=== PATIENT | female | born 1985 | race African-American/Black ===

== ENCOUNTER 2020-04-26 00:03 | Inpatient (IN) | payer OTHER, MEDICAID, SELFPAY ==
[2020-04-26] VITALS (146 sets, daily range): BP systolic 91–150; BP diastolic 46–112; PULSE 77–192; RESP 14–18; TEMP 35.7–37.2; O2SAT 95–100; BMI 32.3
--- NOTE | 2020-04-26 00:54 | LDADM ---
This patient, Radha Camarena, was admitted to Labor/Delivery/Recovery 106 on 04/26/20 at 00:32. Plans for labor, pain management and were discussed with patient. Patient/family oriented to hospital policies and general routines including ID bracelet, bed and alarms, visiting hours, pain management, procedures, bathroom and other care routines, personal items, smoking policy, room service/diet and guest tray routines, security routines, and visiting hours. Patient/Family are encouraged to report perceived risks to care and to ask questions if they do not understand what they are told or what they should do. See OBIX for further documentation.
[2020-04-26 01:19] LABS: Basophils Percent Auto 0.4 % (0.2-1.2); Eosinophils Absolute Auto 0.1 K/mm3 (0-0.3); Eosinophils Percent Auto 1.5 % (0-4.4); Hematocrit 32.7 % (37.0-47.0); Hemoglobin 11.1 g/dL (12.0-15.0); Immature Granulocyte Absolute 0.04 K/mm3 (0.00-0.031); Immature Granulocyte Percent A 0.5 % (0-0.5); Lymphocytes Absolute Auto 1.69 K/mm3 (0.9-3.2); Mean Corpuscular HGB Conc 33.9 g/dl (32-36); Mean Corpuscular Hemoglobin 32.8 pg (26-34); Mean Corpuscular Volume 96.7 fl (80-100); Mean Platelet Volume 11.8 fl (7.4-10.4); Monocytes Absolute Auto 0.4 K/mm3 (0.1-0.6); Monocytes Percent Auto 5.3 % (2.6-8.5); Neutrophils Absolute Auto 5.7 K/mm3 (1.3-6.7); Neutrophils Percent Auto 71.3 % (45.5-73.1); Platelet Count Result 245 k/mm3 (150-375); Red Blood Count 3.38 M/mm3 (4.2-5.4)
[2020-04-26 01:48] LABS: Barbiturate Screen Urine Negative (Negative); Benzodiazepines Screen Urine Negative (Negative)
[2020-04-26 02:24] LABS: Amphetamine Screen Urine Negative (Negative); Cannabinoid Screen Urine Positive (Negative); Cocaine Screen Urine Negative (Negative); Methadone Screen Urine Negative (Negative); Opiate Screen Urine Negative (Negative); Phencyclidine Screen Urine Negative (Negative)
[2020-04-26] MEDS: fentaNYL CITRATE INJ (*CRX) 100 MCG/2 ML VIAL 50 MCG IV PUSH ×2 (02:39→04:07)
[2020-04-26] MEDS: LACTATED RINGERS 1,000 ML 125 ML IV CONT ×2 (02:40→05:28)
--- NOTE | 2020-04-26 05:06 | WPDANESEPP ---
Anes - Eval Pre Procedure Procedure: labor epidural Date/Time: 04/26/20 05:06 Surgeon: rylie Preop Diagnosis: pain during labor Pre Op Diagnosis: Leaking Patient Data Age: 34 Gender: F Height: 1.65 m Weight: 88 kg Last Vital Signs Temp 35.7 C L 04/26/20 05:00 Pulse 93 04/26/20 05:01 Resp 18 04/26/20 05:00 BP 122/81 04/26/20 05:01 Allergies Allergy/AdvReac Type Severity Reaction Status Date / Time No Known Allergies Allergy Verified 04/26/20 00:49 Home Medications Medication Instructions Recorded Confirmed Type PNV,calcium 55-gjul-ealoa acid 1 tablet PO DAILY 04/26/20 04/26/20 History [ Vitamin Plus Low Iron] Laboratory Tests 04/26/20 04/26/20 04/26/20 01:01 01:01 01:01 WBC 8.0 K/mm3 K/mm3 (4.5-10.0) RBC 3.38 M/mm3 L M/mm3 (4.2-5.4) Hgb 11.1 g/dL L g/dL (12.0-15.0) Hct 32.7 % L % (37.0-47.0) MCV 96.7 fl fl (80-100) MCH 32.8 pg pg (26-34) MCHC 33.9 g/dl g/dl (32-36) RDW 14.0 % % (11.5-14.5) Plt Count 245 k/mm3 k/mm3 (150-375) MPV 11.8 fl H fl (7.4-10.4) Immature Gran % (Auto) 0.5 % % (0-0.5) Neut % (Auto) 71.3 % % (45.5-73.1) Lymph % (Auto) 21.0 % % (18.3-44.2) [place] % (Auto) 5.3 % % (2.6-8.5) Eos % (Auto) 1.5 % % (0-4.4) Baso % (Auto) 0.4 % % (0.2-1.2) Lymph # (Auto) 1.69 K/mm3 K/mm3 (0.9-3.2) [place] # (Auto) 0.4 K/mm3 K/mm3 (0.1-0.6) Eos # (Auto) 0.1 K/mm3 K/mm3 (0-0.3) Baso # (Auto) 0.0 K/mm3 K/mm3 (0.0-0.1) Abs Immat Gran (auto) 0.04 K/mm3 H K/mm3 (0.00-0.031) Absolute Neuts (auto) 5.7 K/mm3 K/mm3 (1.3-6.7) Absolute Nucleated RBC 0.0 K/mm3 K/mm3 (0.0-0.012) Nucleated RBC % 0.0 % % (0.0-0.2) Urine Opiates Screen Urine Methadone Screen Ur Barbiturates Screen Ur Phencyclidine Scrn Ur Amphetamine Screen U Benzodiazepines Scrn Urine Cocaine Screen U Cannabinoids Screen RPR Pending Blood Type O Positive Antibody Screen Negative 04/26/20 01:01 WBC RBC Hgb Hct MCV MCH MCHC RDW Plt Count MPV Immature Gran % (Auto) Neut % (Auto) Lymph % (Auto) [place] % (Auto) Eos % (Auto) Baso % (Auto) Lymph # (Auto) [place] # (Auto) Eos # (Auto) Baso # (Auto) Abs Immat Gran (auto) Absolute Neuts (auto) Absolute Nucleated RBC Nucleated RBC % Urine Opiates Screen Negative (Negative) Urine Methadone Screen Negative (Negative) Ur Barbiturates Screen Negative (Negative) Ur Phencyclidine Scrn Negative (Negative) Ur Amphetamine Screen Negative (Negative) U Benzodiazepines Scrn Negative (Negative) Urine Cocaine Screen Negative (Negative) U Cannabinoids Screen Positive A (Negative) RPR Blood Type Antibody Screen Patient hx anesthesia problems: none Family hx anesthesia problems: none [facility] Social History Social History Smoking status: Never smoker Substance use: never Gender identity (if verbalized by the patient): Female Sexual Orientation (if Verbalized by the Patient): Straight or Heterosexual Spiritual care concerns: No Exam Day of Procedure 04/26/20 05:06
[2020-04-26] MEDS: OXYTOCIN 30 UNITS/NS 500 ML 30 UNITS/500 ML BAG IV CONT (06:29)
[2020-04-26] MEDS: ONDANSETRON INJ 4 MG/2 ML VIAL IV PUSH (07:00)
--- NOTE | 2020-04-26 08:47 | PM.IMHP ---
H&P: HPI History of Present Illness Date/Time: 04/26/20 08:47 The patient is a 34-year-old currently 40w1d with an LIZ 04/25/20 who presented to L&D with complaints of leakage of fluid. Patient reports noticing leakage of clear fluid at approximately 11:20 p.m. She reports possible onset of contractions prior to leakage, however, is uncertain. Reported occ contractions at time of presentation to L&D. Denies any vaginal bleeding. Reports good movement. Patient receives outside care with nurse lab support technician Emily Regalado at [facility]. States that has been uncomplicated and all labs and ultrasounds have been within normal limits. Patient has a history of one prior uncomplicated and in 2005. Chief Complaint: SROM Narrative: Radha Camarena is a 34 year old female Review of Systems Review of Systems: All systems reviewed & are unremarkable except as noted in HPI and below Constitutional: Constitutional: Reports as per HPI, Reports no additional constitutional complaints, Denies chills, Denies fever(s), Denies headache(s) and Denies night sweats Eyes: Eyes: Reports as per HPI and Reports no additional eye complaints ENT: Reports system reviewed and no additional complaints, except as documented, Reports as per HPI, Reports Normal hearing present and Denies headache(s) Cardiovascular: Cardiovascular: Reports as per HPI, Reports no additional cardiovascular complaints, Denies chest pain and Denies dyspnea Respiratory: Respiratory: Reports as per HPI, Reports no additional respiratory complaints, Denies cough and Denies dyspnea Gastrointestinal: Gastrointestinal: Reports as per HPI, Reports no additional gastrointestinal complaints, Denies abdominal pain, Denies change in bowel habits, Denies change in stool character, Denies nausea and Denies vomiting Genitourinary: Genitourinary: Reports no additional female genitourinary complaints, Reports as per HPI, Denies abnormal vaginal bleeding, Denies genital lesions, Denies hot flashes, Denies dyspareunia, Denies pelvic pain, Denies sexual dysfunction, Denies urinary incontinence, Denies vaginal discharge, Denies vaginal dryness and Denies vaginal odor Musculoskeletal: Musculoskeletal: Reports no additional musculoskeletal complaints and Reports as per HPI Integumentary/Breasts: Skin/Breast: Reports system reviewed and no additional complaints, except as docu, Reports as per HPI, Denies breast pain and Denies nipple discharge Neurologic: Reports system reviewed and no additional complaints, except as documented, Reports as per HPI, Reports Normal hearing present and Denies headache(s) Psychiatric: Psychiatric: Reports no additional psychiatric complaints, Reports as per HPI, Denies anxiety and Denies depression Endocrine: Endocrine: Reports no additional endocrine complaints and Reports as per HPI Hematologic/Lymphatic: Hematologic/Lymphatic: Reports no additional hematologic/lymphatic complaints and Reports as per HPI Allergic/Immunologic: Allergic/Immunologic: Reports no additional allergic/immunologic complaints and Reports as per HPI [facility] Surgical History Surgical History (Updated 04/26/20 @ 11:13 by Chantell Wolf MD) H/O shoulder surgery as a child Social History Social History Smoking status: Never smoker Substance use: never Gender identity (if verbalized by the patient): Female Sexual Orientation (if Verbalized by the Patient): Straight or Heterosexual Spiritual care concerns: No Meds Home Medications and Allergies Home Medications Medication Instructions Recorded Confirmed Type PNV,calcium 95-cfws-uxozj acid 1 tablet PO DAILY 04/26/20 04/26/20 History [ Vitamin Plus Low Iron] Allergies Allergy/AdvReac Type Severity Reaction Status Date / Time No Known Allergies Allergy Verified 04/26/20 00:49 Vital Signs Vital Signs - 24 hr
--- NOTE | 2020-04-26 09:21 | PM.OBPNVD ---
OB - PN: Subj Subjective Date/time seen: 04/26/20 09:21 Throughout entire period on L&D, EFM seemed to auscultate a possible arrhythmia. An FSE was placed for enhanced monitoring. Possible tetanic contractions were also noted on toco and an IUPC was also placed. Early decelerations were noted, however, there were longer periods of time where the baseline heart rate was bradycardic in 90s-100s. Although moderate variability remained constant and fetus responded minimally to scalp stimulation, the tracing did not adequately recover in between contractions despite various resuscitative measures, including maternal repositioning and O2 administration by facemask. Patient made cervical change to 5cm dilated. FHR remained persistently in the 90s and occasionally decreased to the 80s. Decision was made to proceed with section for Category II tracing remote from delivery. Risks and benefits discussed. All questions and concerns addressed. Patient implied an understanding. OB - PN: Obj Data Labs CBC & Chem 7: 04/26/20 01:01 Labs: Laboratory Results - last 24 hr 04/26/20 04/26/20 04/26/20 01:01 01:01 01:01 WBC 8.0 RBC 3.38 L Hgb 11.1 L Hct 32.7 L MCV 96.7 MCH 32.8 MCHC 33.9 RDW 14.0 Plt Count 245 MPV 11.8 H Immature Gran % (Auto) 0.5 Neut % (Auto) 71.3 Lymph % (Auto) 21.0 [place] % (Auto) 5.3 Eos % (Auto) 1.5 Baso % (Auto) 0.4 Lymph # (Auto) 1.69 [place] # (Auto) 0.4 Eos # (Auto) 0.1 Baso # (Auto) 0.0 Abs Immat Gran (auto) 0.04 H Absolute Neuts (auto) 5.7 Absolute Nucleated RBC 0.0 Nucleated RBC % 0.0 Urine Opiates Screen Negative Urine Methadone Screen Negative Ur Barbiturates Screen Negative Ur Phencyclidine Scrn Negative Ur Amphetamine Screen Negative U Benzodiazepines Scrn Negative Urine Cocaine Screen Negative U Cannabinoids Screen Positive A Blood Type O Positive Antibody Screen Negative OB - PN A/P Time Spent With Patient Time: Total time spent is greater than 50% in coordination of care (as documented) at patient's floor/unit and/or counseling patient:
--- NOTE | 2020-04-26 10:32 | WPDANESEFPP ---
Anes - Eval Final PreProcedure Day of Procedure 04/26/20 10:32 Patient weight: obese Heart: regular rate and rhythm Lungs: clear to auscultation Airway: Mallampati scale class II Neurological: alert and oriented ASA classification: II Emergent: yes Anesthetic plan: proceed Anesthesia type and monitoring: regional epidural and standard monitoring Other findings: exam per GS Informed Consent: The patient's anesthetic plan and its attendant risks and benefits were discussed with the patient/family/POA. Questions were solicited and answers provided to the satisfaction of the patient/family/POA.
--- NOTE | 2020-04-26 10:40 | PM.PROC ---
Procedure Note - Detailed Date of procedure: 04/26/20 Pre-op diagnosis: Leaking Intrauterine at 40w1d Category II tracing remote from delivery Post-op diagnosis: same Procedure performed: Primary low transverse section via Pfannenstiel Description of procedure: The patient was taken to the operating room, where she was transferred to the operating room table. The patient was placed in dorsal supine position with a leftward tilt. She was prepped and draped in the usual sterile fashion. Epidural anesthesia that was previously administered was tested and found to be adequate. A Pfannenstiel skin incision was made with a scalpel and carried through to underlying layer of fascia with the Bovie. The fascia was incised in the midline and the incision was extended laterally with the use of forceps and Klein scissors. The inferior aspect of the fascial incision was grasped with Carlos clamps, elevated, and the underlying rectus muscle were dissected off with Klein scissors. Attention was then turned to the superior aspect of the fascial incision, which in a similar manner, was grasped with Carlos clamps, elevated, and the underlying rectus muscles were also dissected off with Klein scissors. The rectus muscles were in the midline and the peritoneal cavity was entered bluntly. This incision was extended superiorly and inferiorly with good visualization of the bladder and care was taken to avoid blood vessels. A bladder blade was inserted. The vesicouterine peritoneum was identified and incised sharply with Metzenbaum scissors. This incision was extended laterally with Metzenbaum scissors and a bladder flap was created digitally. The bladder blade was replaced. A low-transverse uterine incision was made with a scalpel. This incision was extended laterally with bandage scissors. Amniotomy was performed. Meconium stained amniotic fluid was noted. The 's head was grasped and gently guided to the level of the uterine incision. The 's head was delivered easily and atraumatically without difficulty followed by the neck, shoulders, and rest of body with gentle fundal pressure. The infant's nose and mouth were suctioned bulb suction. The was crying spontaneously. The cord was clamped and cut and the was handed off to waiting nursing staff. A segment of cord was collected for cord gases. Cord blood was also collected. The placenta was then delivered manually with gentle uterine massage. Uterus was exteriorized and cleared of all clots and debris. An area along the posterior surface of the uterine wall was noted to be moderately bleeding. A figure of eight suture with 0 Vicryl was placed ensuring hemostasis. The uterine incision was reapproximated with 0 Vicryl in a running, locked fashion. A second imbricating layer using 0 Monocryl performed. A few areas of bleeding were noted inferior to the uterine incision. These areas were made hemostatic with a combination using a few figure of eight sutures using 0 Vicryl and 0 Monocryl as well bovie. Excellent hemostasis was noted. On inspection, the uterus, ovaries, and fallopian tubes appeared to be normal bilaterally. The uterus was replaced into the abdominal cavity. The gutters were cleared of all clots and debris. The uterine incision was inspected again and noted to be hemostatic. Hemaderm was applied across the uterine incision. Seprafilm was also applied across the uterine incision and anterior surface of the uterus. The peritoneum was reapproximated with 2-0 Monocryl. The fascia was then closed with 0 Vicryl in a running fashion. The subcutaneous layer was irrigated with water. Pinpoint areas of bleeding were made hemostatic with Bovie. The subcutaneous layer was reapproximated with 2-0 plain and the skin was then closed with 4-0 Monocryl in a subcuticular fashion. The skin was cleansed and dried. Dermaflex skin adhesive was applied across the incision. A pressure dressing was also applied. [facility]
--- NOTE | 2020-04-26 11:25 | PC.NURSE ---
1045 INTO OBR VIA STRETCHER, REPORT FROM Kimberly KIM CRNA. MONITORS APPLIED. IVF GOING WELL. SCD'S REMAIN.MYERS WITH CLEAR YELLOW URINE. INCISION INTACT OPEN TO AIR. FUNDUS FIRM AT UMBILICUS. SMALL RUBRA FLOW. PAIN 3 ONLY WITH FUNDAL CHECKS.
--- NOTE | 2020-04-26 13:54 | SUR.PHASEI ---
1245 EVALUATIONS AT 1130 AND 1145 ARE WNL AND PREVIOUS...CHARTING IS NOT WORKING CORRECTLY AND ATTEMPTS TO DISCARD UNSUCCESSFUL.
[2020-04-26] MEDS: KETOROLAC 30 MG/ML VIAL (*BKC) IV PUSH (14:15)
[2020-04-26] MEDS: DEXTROSE 5%/0.45% SOD CHL 1,000 ML 125 ML IV CONT (16:48)
[2020-04-26] MEDS: DOCUSATE SODIUM 100 MG CAPSULE PO (20:01)
[2020-04-26] MEDS: IBUPROFEN 600 MG TABLET PO (20:56)
[2020-04-27] VITALS: BP 97/56; PULSE 80; RESP 16; TEMP 36.7; O2SAT 96
[2020-04-27 04:00] VITALS: BP 91/55; PULSE 71; RESP 16; TEMP 36.4; O2SAT 96
[2020-04-27 05:30] LABS: Basophils Percent Auto 0.4 % (0.2-1.2); Eosinophils Absolute Auto 0.1 K/mm3 (0-0.3); Eosinophils Percent Auto 1.1 % (0-4.4); Hematocrit 26.4 % (37.0-47.0); Hemoglobin 8.7 g/dL (12.0-15.0); Immature Granulocyte Absolute 0.03 K/mm3 (0.00-0.031); Immature Granulocyte Percent A 0.4 % (0-0.5); Mean Corpuscular Hemoglobin 32.2 pg (26-34); Mean Corpuscular Volume 97.8 fl (80-100); Monocytes Absolute Auto 0.5 K/mm3 (0.1-0.6); Monocytes Percent Auto 5.8 % (2.6-8.5); Neutrophils Absolute Auto 6.7 K/mm3 (1.3-6.7); Neutrophils Percent Auto 80.3 % (45.5-73.1); Platelet Count Result 189 k/mm3 (150-375); Red Cell Distribution Width 14.1 % (11.5-14.5); White Blood Count 8.3 K/mm3 (4.5-10.0)
--- NOTE | 2020-04-27 07:07 | WPDANLDPN2 ---
Anes-Prog Note L&D Date/Time: 04/27/20 07:07 Comfortable throughout: labor and section Neuraxial method: epidural Epidural/Spinal procedure site: clean & non-tender Neuro status: Neuro function grossly intact. Cardiovascular status: normal Respiratory status: normal Airway patency: baseline Mental status: baseline Post-Op hydration status: normal Vital Signs: Last Vital Signs Temp 36.4 C 04/27/20 04:00 Pulse 71 04/27/20 04:00 Resp 16 04/27/20 04:00 BP 91/55 L 04/27/20 04:00 Pulse Ox 96 04/27/20 04:00 Pain score (VAS): 2/10 I/O: Intake & Output 04/26/20 04/26/20 04/27/20 15:59 23:59 07:59 Intake Total 120 1800 Output Total 398 842 1984 Balance -300 -380 -350 Post-procedural complaints: none Patient feedback: Patient satisfied with anesthetic care.
--- NOTE | 2020-04-27 07:08 | WPDANLDNPN2 ---
Anes-Prog Note L&D-Neuraxial Date/Time: 04/27/20 07:08 Neuraxial medications: epidural PF morphine Opiod-related complaints: none Patient feedback: Patient satisfied with post-operative pain management.
[2020-04-27 08:00] VITALS: BP 101/57; PULSE 79; RESP 18; TEMP 36.6; O2SAT 96
[2020-04-27] MEDS: HYDROcodone/acetaminophen (*CRX) 5-325 MG TABLET 1 TAB PO ×4 (08:01→23:29)
[2020-04-27] MEDS: IBUPROFEN 600 MG TABLET PO ×2 (08:02→13:38)
[2020-04-27] MEDS: DOCUSATE SODIUM 100 MG CAPSULE PO ×2 (08:02→16:46)
[2020-04-27] MEDS: POLYSACCHARIDE IRON COMPLEX 150 MG CAPSULE PO ×2 (08:02→16:46)
[2020-04-27] MEDS: SIMETHICONE 80 MG TAB.CHEW PO ×3 (08:03→19:50)
[2020-04-27 09:05] LABS: Rapid Plasma Reagin Non-Reactive (NonReactive)
--- NOTE | 2020-04-27 11:44 | PM.OBPNVD ---
OB - PN: Subj Subjective Date/time seen: 04/27/20 11:44 Patient comments: pain well controlled, tolerating diet and flatus present; no incisional pain Zoe baby status: doing well and bottle feeding well Zoe feeding status: exclusively bottle feeding Narrative: Pt denies fever/chills Denies Nausea/vomiting/Cp/SOB Urinated once without problems. Passing flatus Lochia is less than her menstrual cycle. OB - PN: Obj Data Labs CBC & Chem 7: 04/27/20 05:08 Labs: Laboratory Results - last 24 hr 04/26/20 04/27/20 01:01 05:08 WBC 8.3 RBC 2.70 L Hgb 8.7 L Hct 26.4 L MCV 97.8 MCH 32.2 MCHC 33.0 RDW 14.1 Plt Count 189 MPV 12.0 H Immature Gran % (Auto) 0.4 Neut % (Auto) 80.3 H Lymph % (Auto) 12.0 L [place] % (Auto) 5.8 Eos % (Auto) 1.1 Baso % (Auto) 0.4 Lymph # (Auto) 1.00 [place] # (Auto) 0.5 Eos # (Auto) 0.1 Baso # (Auto) 0.0 Abs Immat Gran (auto) 0.03 Absolute Neuts (auto) 6.7 Absolute Nucleated RBC 0.0 Nucleated RBC % 0.0 RPR Non-reactive OB - PN A/P Assessment and Plan (1) Anemia: Code(s): D64.9 - Anemia, unspecified Status: Acute Assessment and Plan: continue iron (2) S/P section: Code(s): Z98.891 - History of uterine scar from previous surgery Status: Acute Assessment and Plan: Doing well pain well controlled Plan day: 1 Plan: routine care Comments: encourage ambulation Advance diet as tolerated BF instructed. Time Spent With Patient Time: Total time spent is greater than 50% in coordination of care (as documented) at patient's floor/unit and/or counseling patient: Review of Systems Constitutional: Constitutional: Reports as per HPI, Denies chills, Denies fever(s) and Denies headache(s) Eyes: Eyes: Denies blurry vision ENT: Reports Normal hearing present Cardiovascular: Cardiovascular: Denies chest pain, Denies lightheadedness and Denies dyspnea Respiratory: Respiratory: Denies cough and Denies dyspnea Gastrointestinal: Gastrointestinal: Denies nausea and Denies vomiting Genitourinary: Genitourinary: Reports as per HPI Musculoskeletal: Musculoskeletal: Reports as per HPI Integumentary/Breasts: Skin/Breast: Denies breast pain and Denies breast mass Neurologic: Reports Normal hearing present Psychiatric: Psychiatric: Reports no additional psychiatric complaints Exam Const: General: cooperative, healthy appearing, comfortable, no acute distress, well developed, alert, awake, Physically active and well groomed Nutritional Appearance: well nourished Orientation/consciousness: patient oriented x3 Limitations: no limitations HENMT: Head: normal to inspection Ears: hearing grossly normal bilaterally Resp: Effort & Inspection: normal respiratory effort and able to speak in complete sentences Auscultation: clear to auscultation bilaterally Cardio: Rate: regular rate Rhythm: regular rhythm GI: Inspection: normal to inspection and non-distended GI Palp: Yes Soft to palpation, Yes Tenderness to palpation present (GI) (appropraite for surgery) and Yes Other GI palpation findings present (Fundus firm and level of umbilicus) Auscultation: normal bowel sounds Rectal Exam: deferred
--- NOTE | 2020-04-27 11:50 | PM.OBDSVD ---
DS: Admitting Diagnosis Admitting Diagnosis Admitting Diagnosis: SROM at term DS: Discharge Diagnosis Discharge Diagnosis (1) S/P section: Code(s): Z98.891 - History of uterine scar from previous surgery Status: Acute OB - DS: Summary OB Procedures : None OB Procedures Intrapartum: low cervical, transverse OB Procedures: : None Peripartum Data Delivery Method: Section Procedures: Procedures Operation Date: 04/26/20 09:15 Actual Procedures Side Surgeon p Section Chantell Wolf MD complications: none Status at Discharge Functional status at discharge: independent ambulation Overall status at discharge: patient is progressing back to baseline Time Spent with Patient Time attestation: Total time spent providing and/or coordinating discharge services: Time spent: Less than 30 minutes Exam Const: General: cooperative, healthy appearing, comfortable, no acute distress, well developed, alert, awake, Physically active and well groomed Nutritional Appearance: well nourished Orientation/consciousness: patient oriented x3 Limitations: no limitations HENMT: Head: normal to inspection Ears: hearing grossly normal bilaterally Resp: Effort & Inspection: normal respiratory effort and able to speak in complete sentences Auscultation: clear to auscultation bilaterally Cardio: Rate: regular rate Rhythm: regular rhythm GI: Inspection: normal to inspection, non-distended and incision (C/D/I) GI Palp: Yes Soft to palpation, Yes Tenderness to palpation present (GI) (appropriate for surgery) and Yes Other GI palpation findings present (Fundus firm below umbilicus) Auscultation: normal bowel sounds Rectal Exam: deferred DS: Data Data Completed and Pending Pending studies at discharge: Pending at discharge 04/26/20 09:40 Surgical [PTH] Routine Labs on day of discharge: Labs from last 24 hours 04/27/20 04/26/20 05:08 01:01 WBC 8.3 RBC 2.70 L Hgb 8.7 L Hct 26.4 L MCV 97.8 MCH 32.2 MCHC 33.0 RDW 14.1 Plt Count 189 MPV 12.0 H Immature Gran % (Auto) 0.4 Neut % (Auto) 80.3 H Lymph % (Auto) 12.0 L [facility] % (Auto) 5.8 Eos % (Auto) 1.1 Baso % (Auto) 0.4 Lymph # (Auto) 1.00 [facility] # (Auto) 0.5 Eos # (Auto) 0.1 Baso # (Auto) 0.0 Abs Immat Gran (auto) 0.03 Absolute Neuts (auto) 6.7 Absolute Nucleated RBC 0.0 Nucleated RBC % 0.0 RPR Non-reactive Discharge Plan Discharge Attending physician on discharge: Gala Anderson Discharging Clinician: Gala Anderson Patient Disposition: Home, Self-Care Activity: pelvic rest Diet: regular Wound Care Instructions: incision open to air Patient Instructions: Antibiotic Form Stand Alone Forms: General Discharge Information Follow-up/Referrals: Chantell Wolf MD [Physician] - Discharge Medications: New hydrocodone-acetaminophen [Assumption] 10-325 mg Tablet 1 tablet PO Q3H PRN (Reason: Pain Rated 7-10) Qty: 25 RF: 0 ibuprofen 600 mg Tablet 600 mg PO Q6H PRN (Reason: Cramping) Qty: 60 RF: 0 polysaccharide iron complex 150 mg iron Capsule 150 mg PO BIDWM Qty: 60 RF: 0 docusate sodium 100 mg Capsule 100 mg PO BID Qty: 60 RF: 0 Continued Vitamin Plus Low Iron 27 mg iron- 1 mg tablet 1 tablet PO DAILY RF: 0 Date of admission: 04/26/20 00:32 Primary Care Provider: PHYSICIAN,CONSULTANT IN ERGONOMICS AND SAFETY Admitting Provider: Chantell Wolf Attending physician on admission: Chantell Wolf Condition: Stable
[2020-04-27 20:00] VITALS: BP 110/61; PULSE 90; RESP 16; TEMP 36.8; O2SAT 96
[2020-04-28] MEDS: HYDROcodone/acetaminophen (*CRX) 5-325 MG TABLET 1 TAB PO ×3 (03:16→11:11)
[2020-04-28] MEDS: SIMETHICONE 80 MG TAB.CHEW PO ×2 (03:16→07:18)
[2020-04-28] MEDS: IBUPROFEN 600 MG TABLET PO ×2 (03:16→11:10)
[2020-04-28] MEDS: POLYSACCHARIDE IRON COMPLEX 150 MG CAPSULE PO (07:18)
[2020-04-28] MEDS: DOCUSATE SODIUM 100 MG CAPSULE PO (07:18)
[2020-04-28 07:27] VITALS: BP 107/65; PULSE 75; RESP 18; TEMP 37.1
--- NOTE | 2020-04-28 07:30 | PC.NURSE ---
Patient viewed the discharge video Mother & Baby Care, The First Two Weeks . Patient was given the opportunity and encouraged to ask questions. Patient verbalized understanding of information shared and has been given the mother/baby guide for home reference.
--- NOTE | 2020-04-28 08:25 | PM.OBPNVD ---
OB - PN: Subj Subjective Date/time seen: 04/28/20 08:25 Patient comments: pain well controlled, tolerating diet and flatus present; no incisional pain [place] baby status: doing well and bottle feeding well [place] feeding status: exclusively bottle feeding Narrative: Pain well controlled Ambulating and urinating without difficulty Tolerating regular diet baby girl doing well and Bottle feeding OB - PN: Obj Data Labs CBC & Chem 7: 04/27/20 05:08 Labs: Laboratory Results - last 24 hr 04/26/20 01:01 RPR Non-reactive OB - PN A/P Plan day: 2 Plan: discharge home and other (f/u in 1 week for incision checkup) Comments: Bottle feeding instructed Discussed regarding Post op incision care Time Spent With Patient Time: Total time spent is greater than 50% in coordination of care (as documented) at patient's floor/unit and/or counseling patient: Time with patient: 15 - 25 minutes Review of Systems Constitutional: Constitutional: Reports as per HPI, Denies chills and Denies fever(s) Eyes: Eyes: Denies blind spots and Denies blurry vision ENT: Reports Normal hearing present Cardiovascular: Cardiovascular: Reports as per HPI, Denies chest pain, Denies lightheadedness and Denies dyspnea Respiratory: Respiratory: Denies cough and Denies dyspnea Gastrointestinal: Gastrointestinal: Reports as per HPI, Denies nausea and Denies vomiting Genitourinary: Genitourinary: Reports as per HPI Exam Const: General: cooperative, healthy appearing, comfortable, no acute distress, well developed, alert, awake and well groomed Nutritional Appearance: well nourished Orientation/consciousness: patient oriented x3 Limitations: no limitations Resp: Effort & Inspection: normal respiratory effort and able to speak in complete sentences Auscultation: clear to auscultation bilaterally Cardio: Rate: regular rate Rhythm: regular rhythm GI: Inspection: normal to inspection, non-distended and incision (C/D/I) GI Palp: Yes Soft to palpation, Yes Tenderness to palpation present (GI) (appropriate for surgery) and Yes Other GI palpation findings present (Fundus firm below umbilicus) Auscultation: normal bowel sounds Rectal Exam: deferred
--- NOTE | 2020-04-28 08:55 | PC.NURSE ---
Self care and infant care discharge instructions given including follow up visit date and time. Mother verbalized understanding. No questions or concerns voiced. Very pleasant and cooperative. FOB at side.
[2020-04-29 09:54] VITALS: BP 110/72; PULSE 89; RESP 20; TEMP 36.8; O2SAT 100
== END 2020-04-28 11:22 | disposition home or self-care (01) | DRG 788 ==
LOC: ANHLDR 07:39 → ANHOB2 04-27 13:41 → ANHLDR 04-29 12:39 → ANHOB2 04-29 12:39
PROVIDERS: Admitting Provider Student in an Organized Health Care Education/Training Program; Visit Provider Obstetrics & Gynecology
PROC: 10D00Z1 Extraction of Products of Conception, Low, Open Approach (ICD-10-PCS; CPT 59514; principal; 2020-04-26 09:15)
DX: O76 Abnormality in fetal heart rate and rhythm complicating labor and delivery (principal); Z3A.40 40 weeks gestation of pregnancy; Z37.0 Single live birth; O77.0 Labor and delivery complicated by meconium in amniotic fluid; O99.02 Anemia complicating childbirth; D64.9 Anemia, unspecified
CPT/HCPCS: 36415; 80307; 84112; 85025; 86592; 86850; 86900; 86901; 88307; A9270; C1765; J0131; J1885; J2274; J2405; J2590; J2795; J3010; J7120

== ENCOUNTER 2023-07-11 10:21 | Outpatient (CLI) | payer OTHER, MEDICAID, SELFPAY ==
[2023-07-11 11:21] LABS: Hematocrit 36.9 % (37.0-47.0); Hemoglobin 12.3 g/dL (12.0-15.0); Mean Corpuscular HGB Conc 33.3 g/dl (32-36); Mean Corpuscular Hemoglobin 31.8 pg (26-34); Mean Corpuscular Volume 95.3 fl (80-100); Mean Platelet Volume 11.6 fl (7.4-10.4); Platelet Count Result 197 k/mm3 (150-375); Red Blood Count 3.87 M/mm3 (4.2-5.4); Red Cell Distribution Width 12.9 % (11.5-14.5); White Blood Count 3.8 K/mm3 (4.5-10.0)
[2023-07-11 11:37] LABS: Alanine Aminotransferase 12 U/L (6-35); Albumin Level 4.3 g/dL (3.5-5.1); Alkaline Phosphatase 56 U/L (38-126); Anion Gap 6 mmol/L (4-12); Aspartate Amino Transferase 29 U/L (14-36); Blood Urea Nitrogen 11 mg/dL (7-17); Carbon Dioxide 22 mmol/L (22-30); Chloride 108 mmol/L (98-107); Cholesterol 243 mg/dL (0-200); Estimated Glomerular Filt Rate > 60; Glucose 92 mg/dL (65-110); HDL Direct 67 mg/dL; Potassium 3.6 mmol/L (3.4-5.0); Sodium 136 mmol/L (137-145); Triglycerides 81 mg/dL (<150)
[2023-07-11 11:47] LABS: LDL Cholesterol Direct 125 mg/dL
[2023-07-11 11:49] LABS: Pregnancy On Board Control Positive; Urine Pregnancy Test Negative
[2023-07-11 12:05] LABS: Rapid Plasma Reagin Non-Reactive (NonReactive)
[2023-07-11 12:14] LABS: HIV 1/2 Ab P24 Ag Result Negative (Negative)
[2023-07-11 12:35] LABS: Trichomonas Vag PCR NOT DETECTED (NOT DETECTE)
[2023-07-11 12:48] LABS: Hepatitis C Virus Antibody Negative (Negative)
[2023-07-11 13:00] LABS: Chlamydia trachomatis NOT DETECTED (NOT DETECTE); Neisseria gonorrhoeae PCR NOT DETECTED (NOT DETECTE)
== END 2023-07-11 10:22 | disposition home or self-care (01) ==
LOC: ANHLAB 10:23
PROVIDERS: Visit Provider Nurse Practitioner Family
DX: Z11.3 Encounter for screening for infections with a predominantly sexual mode of transmission (principal); Z72.51 High risk heterosexual behavior; Z11.59 Encounter for screening for other viral diseases; Z11.4 Encounter for screening for human immunodeficiency virus [HIV]; D64.9 Anemia, unspecified; Z13.228 Encounter for screening for other metabolic disorders; Z13.220 Encounter for screening for lipoid disorders; N89.8 Other specified noninflammatory disorders of vagina
CPT/HCPCS: 36415; 80053; 80061; 81025; 85027; 86592; 86695; 86696; 86703; 86803; 87491; 87591; 87661; G0432